=== PATIENT | female | born 1960 | race Caucasian/White ===

== ENCOUNTER 2017-12-01 06:22 | Day surgery (SDC) | payer SELFPAY ==
[2017-11-28 09:58] VITALS: BMI 35.3
[2017-12-01] MEDS ORDERED: Propofol 10 mg/ml Inj (20 ML) ONE (07:57)
[2017-12-01] MEDS ORDERED: Lactated Ringer's 500 ML IV SCH (08:30)
[2017-12-01 09:07] VITALS: TEMP 96.9; O2SAT 100
[2017-12-01 09:13] VITALS: BP 119/73; PULSE 60; RESP 15
== END 2017-12-01 09:50 | disposition home or self-care (01) ==
LOC: C.ENDO 06:22
PROVIDERS: ATTEND Internal Medicine Gastroenterology
DX: K57.32 Diverticulitis of large intestine without perforation or abscess without bleeding (principal); R10.13 Epigastric pain; K57.90 Diverticulosis of intestine, part unspecified, without perforation or abscess without bleeding; K64.8 Other hemorrhoids; K31.7 Polyp of stomach and duodenum; K29.70 Gastritis, unspecified, without bleeding
CPT/HCPCS: 43239; 45378; 82948; 88305; J2001; J2704; J3010; J7120